=== PATIENT | female | born 1935 | race Caucasian/White ===

== ENCOUNTER 2018-10-23 08:19 | Inpatient (IN) | payer MEDICARE, MEDICAID, BC ==
[~2018-10-23] VITALS: Ht 154.9 cm; Wt 65.8 kg
--- NOTE | 2018-10-23 08:24 | NUR ---
Patient seen and examine by
[2018-10-23] MEDS ORDERED: ASPIRIN 81 MG TAB.CHEW PO ONE (08:30)
[2018-10-23] MEDS ORDERED: ASPIRIN 81 MG TAB.CHEW ONE (08:31)
[2018-10-23 08:50] LABS: BASOPHILS % (AUTO) 0.4 % (0.0-2.0); EOSINOPHILS # (AUTO) 0.2 K/uL (0.0-0.7); EOSINOPHILS % (AUTO) 3.8 % (0.0-7.0); HEMATOCRIT 42.5 % (31.2-41.9); HEMOGLOBIN 13.9 g/dL (10.9-14.3); LYMPHOCYTES # (AUTO) 2.5 K/uL (20.0-40.0); LYMPHOCYTES % (AUTO) 43.7 % (20.5-51.5); MEAN CORPUSCULAR HEMOGLOBIN 28.8 uug (24.7-32.8); MEAN CORPUSCULAR HGB CONC 33 g/dL (32.3-35.6); MEAN CORPUSCULAR VOLUME 88.1 fL (75.5-95.3); MONOCYTES # (AUTO) 0.6 K/uL (2.0-10.0); MONOCYTES % (AUTO) 9.6 % (0.0-11.0); NEUTROPHILS # (AUTO) 2.5 K/uL (1.8-8.9); NEUTROPHILS % (AUTO) 42.5 % (38.5-71.5); PLATELET COUNT (AUTO) 186 K/uL (179-408); RED BLOOD CELL COUNT(AUTO) 4.83 MIL/uL (3.63-4.92); WHITE BLOOD COUNT (AUTO) 5.8 K/uL (3.8-11.8)
[2018-10-23 09:05] LABS: CARBON DIOXIDE 28 mmol/L (21-32); CHLORIDE 105 mmol/L (98-107); CREATININE 0.6 mg/dL (0.6-1.3); GLUCOSE 88 mg/dL (74-106); UREA NITROGEN, BLOOD 22 mg/dL (7-18)
[2018-10-23 09:08] LABS: ALANINE AMINOTRANSFERASE 63 U/L (14-59); ALKALINE PHOSPHATASE 135 U/L (50-136); ASPARTATE AMINOTRANSFERASE 37 U/L (15-37); BILIRUBIN,DIRECT 0.1 mg/dL (0.0-0.2); BILIRUBIN,TOTAL 0.5 mg/dL (0.2-1.0); TOTAL PROTEIN, SERUM 6.8 g/dL (6.4-8.2)
--- NOTE | 2018-10-23 09:24 | NUR ---
vitals: HR 69, rr 18, 148/95, SAT 98% on room air.
--- NOTE | 2018-10-23 09:42 | NUR ---
Report given to Melia Wills pt. will be going to room 304. vitals stable no c/o discomfort at thist loretta. pt's son at bedside.
--- NOTE | 2018-10-23 10:00 | NUR ---
Patient transferred to telemetry floor in stable condition, no signs of distress at this time. Vital signs taken and telemetry monitors palced. Patient bedrest at this time. ID-band placed, bed alarm on, call light within reach of patient. Will continue to monitor throughout shift.
[2018-10-23 10:14] VITALS: BP 149/81
[2018-10-23] MEDS ORDERED: ACETAMINOPHEN 325 MG TABLET PO PRN (11:30)
[2018-10-23] MEDS ORDERED: ZOLPIDEM 5 MG TABLET PO PRN (11:30)
[2018-10-23] MEDS ORDERED: MORPHINE SULFATE 2 MG/1 ML DISP.SYRIN IV PRN (11:30)
[2018-10-23] MEDS ORDERED: NITROGLYCERIN 0.4 MG/TAB BOTTLE SL PRN (11:30)
[2018-10-23] MEDS ORDERED: ONDANSETRON 4 MG/2 ML VIAL IV PRN (11:30)
[2018-10-23] MEDS ORDERED: Z GUARD REMEDY PASTE 57 GM TUBE TOP PRN (11:30)
[2018-10-23] MEDS ORDERED: MAGNESIUM HYDROXIDE 30 ML LIQUID UDC PO PRN (11:30)
[2018-10-23] MEDS ORDERED: HYDROCODONE/APAP 5-325MG TABLET PO PRN (11:30)
[2018-10-23 16:25] VITALS: BP 93/67
[2018-10-23] MEDS ORDERED: IBUP-1953 PO (18:01)
--- NOTE | 2018-10-23 19:30 | NUR ---
Received patient sitting up in bed changing clothes in preparation for discharge. Awaiting latest troponin prior to discharge. Patient no longer has IV access, tele monitor still on. Will process discharge papers.
--- NOTE | 2018-10-23 19:45 | NUR ---
Noted troponin is negative. Discharge paperwork signed by patient, removed tele monitor and ID band. Instructed patient to follow up with PCP in 2 weeks. Belongings list signed, all belongings sent with patient. Accompanied patient and son to hospital lobby. Patient in stable condition and discharged to home with son.
[2018-10-24] MEDS ORDERED: ASPIRIN EC 81 MG TABLET.DR PO SCH (09:00)
== END 2018-10-23 19:49 | disposition home or self-care (01) | DRG 204 ==
LOC: ER 08:19 → TELE3 09:46
DX: R07.81 Pleurodynia (principal); R94.31 Abnormal electrocardiogram [ECG] [EKG]; Z88.0 Allergy status to penicillin
CPT/HCPCS: 36415; 70030-TC; 71045; 85025; 93005; 93307; A4663; G0378